=== PATIENT | female | born 1995 | race Caucasian/White ===

== ENCOUNTER 2016-10-17 22:44 | Emergency (ER) | payer BC ==
[~2016-10-17] VITALS: Ht 167.6 cm; Wt 61.4 kg
[2016-10-17 22:48] VITALS: TEMP 36.9; Ht 167.6 cm; Wt 61.4 kg
[2016-10-17] MEDS ORDERED: BCPILLS PO (23:00)
[2016-10-17] MEDS ORDERED: PANT40TA PO (23:00)
[2016-10-17] MEDS ORDERED: ONDANSETRON INJ 2 MG/ML 2 ML VIAL IV STA (23:12)
[2016-10-17] MEDS ORDERED: SODIUM CHLORIDE 0.9% 1000ML 1,000 ML IV ONE ×2 (23:15)
[2016-10-17 23:39] LABS: BASO % 0.1 %; BASO ABS # 0.03 K/uL (0-0.2); COMPLETE YES; EOS % 0.2 %; HEMATOCRIT 42.6 % (37-47); IG% 0.3 %; LYMPH % 4.7 %; LYMPH ABS # 0.97 K/uL (1.2-3.4); MEAN CELL VOLUME 90.8 fL (80-100); MEAN CORPUSCULAR HEMOGLOBIN 32.2 pg (25-34); MEAN CORPUSCULAR HGB CONC 35.4 g/dl (32-36); MEAN PLATELET VOLUME 10.1 fL (7.4-10.4); MONO % 5.2 %; NEUT % 89.5 %; PLATELET COUNT 291 K/uL (130-400); RED BLOOD COUNT 4.69 M/uL (4.2-5.4); WHITE BLOOD COUNT 20.57 K/uL (4.8-10.8)
[2016-10-17 23:58] LABS: BUN/CREATININE RATIO 18.2 (10-20); CALCIUM 9.2 mg/dl (8.5-10.1); CREATININE 0.68 mg/dl (0.60-1.20); POTASSIUM 3.6 mmol/L (3.5-5.1)
[2016-10-18] LABS: ALB/GLOB RATIO 0.9 (0.9-2)
[2016-10-18 01:08] LABS: URINE APPEARANCE CLOUDY (CLEAR); URINE BILIRUBIN NEG (NEG); URINE COLOR YELLOW; URINE EPITHELIAL CELL AUTO >30 /lpf (0-5); URINE NITRITE NEG (NEG); URINE SPECIFIC GRAVITY 1.019 (1.000-1.030); UROBILINOGEN NEG (NEG); ZZUR CULT IF INDIC CLEAN CATCH YES
[2016-10-18 01:11] LABS: MANUAL MICROSCOPIC REQUIRED? NO; REVIEW REQ? YES
[2016-10-18] MEDS ORDERED: ONDA4TAB10 SL (01:12)
[2016-10-18] MEDS ORDERED: ONDANSETRON HOME PACK 4MG OD TAB PO ONE (01:15)
[2016-10-18 01:24] LABS: URINE MUCUS PRESENT (NONE PRSENT)
[2016-10-18 01:25] VITALS: BP 147/77; PULSE 86; O2SAT 98
--- NOTE | 2016-10-18 06:11 | EMERGENCY ROOM VISIT NOTE ---
History First contact with patient: 22:55 Chief Complaint: DEHYDRATION Stated Complaint: VOMITING, DIARRHEA, DEHYDRATED Nursing Triage Summary: Patient reports n/v/d since 1999 today. Also reports diffuse abdominal cramping. History of Present Illness The patient is a 20 year old female who presents to the Emergency Room with complaints of nausea, vomiting, and diarrhea for the past 3 hours. The patient states that her symptoms began spontaneously, and she feels very dehydrated. The patient does have some abdominal cramping, but nontoxic abdominal pain. She has not had fever or chills. She does not have known exposure to disease. She did eat at [employer] for lunch today, and states that her emesis has rarely been food and water here and she had 2 episodes of diarrhea, both of which were watery. No recent antibiotic use. She rates her discomfort a 7/10. Review of Systems More than 10 systems were reviewed and otherwise negative with the exception of history of present illness. 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 Vital signs mild tachycardia GENERAL: Well-developed, well-nourished, white female, who is in no acute distress and resting comfortably. Patient is cooperative with the examination. HEAD: Normocephalic atraumatic. MOUTH: Mucous membranes moist. Tonsils are not enlarged. Pharynx without erythema, blood, or exudate. Uvula midline. Airway patent. NECK: Supple without nuchal rigidity. No lymphadenopathy. No thyromegaly. Cervical spine is nontender. HEART: Regular rate and rhythm without murmurs gallops or rubs. LUNGS: Clear to auscultation bilaterally without wheezes, rales or rhonchi. No retractions or accessory muscle use. ABDOMEN: Positive normal bowel sounds x 4. Soft, nontender, without masses or organomegaly. No guarding or rebound tenderness. Medical Decision & Procedures Laboratory Results 10/17/16 23:20 Red Blood Count 4.69, Mean Corpuscular Volume 90.8, Mean Corpuscular Hemoglobin 32.2, Mean Corpuscular Hemoglobin Concent 35.4, Mean Platelet Volume 10.1, Neutrophils (%) (Auto) 89.5, Lymphocytes (%) (Auto) 4.7, Monocytes (%) (Auto) 5.2, Eosinophils (%) (Auto) 0.2, Basophils (%) (Auto) 0.1, Neutrophils # (Auto) 18.38, Lymphocytes # (Auto) 0.97, Monocytes # (Auto) 1.07, Eosinophils # (Auto) 0.05, Basophils # (Auto) 0.03 10/17/16 23:20 Test 10/17/16 23:20 10/18/16 00:45 White Blood Count 20.57 K/uL (4.8-10.8) Red Blood Count 4.69 M/uL (4.2-5.4) Hemoglobin 15.1 g/dL (12.0-16.0) Hematocrit 42.6 % (37-47) Mean Corpuscular Volume 90.8 fL (80-100) Mean Corpuscular Hemoglobin 32.2 pg (25-34) Mean Corpuscular Hemoglobin Concent 35.4 g/dl (32-36) Platelet Count 291 K/uL (130-400) Mean Platelet Volume 10.1 fL (7.4-10.4) Neutrophils (%) (Auto) 89.5 % Lymphocytes (%) (Auto) 4.7 % Monocytes (%) (Auto) 5.2 % Eosinophils (%) (Auto) 0.2 % Basophils (%) (Auto) 0.1 % Neutrophils # (Auto) 18.38 K/uL (1.4-6.5) Lymphocytes # (Auto) 0.97 K/uL (1.2-3.4) Monocytes # (Auto) 1.07 K/uL (0.11-0.59) Eosinophils # (Auto) 0.05 K/uL (0-0.5) Basophils # (Auto) 0.03 K/uL (0-0.2) RDW Standard Deviation 40.2 fL (36.4-46.3) RDW Coefficient of Variation 12.2 % (11.5-14.5) Immature Granulocyte % (Auto) 0.3 % Immature Granulocyte # (Auto) 0.07 K/uL (0.00-0.02) Anion Gap 12.0 mmol/L (3-11) Est Creatinine Clear Calc Drug Dose 123.5 ml/min Estimated GFR () 145.9 Estimated GFR (Non- 125.9 BUN/Creatinine Ratio 18.2 (10-20) Calcium Level 9.2 mg/dl (8.5-10.1) Total Bilirubin 0.4 mg/dl (0.2-1) Aspartate Amino Transf (AST/SGOT) 15 U/L (15-37) Alanine Aminotransferase (ALT/SGPT) 27 U/L (12-78) Alkaline Phosphatase 62 U/L (45-117) Total Protein 8.1 gm/dl (6.4-8.2) Albumin 3.9 gm/dl (3.4-5.0) Globulin 4.2 gm/dl (2.5-4.0) Albumin/Globulin Ratio 0.9 (0.9-2) Lipase 112 U/L (73-393) Urine Color YELLOW Urine Appearance CLOUDY (CLEAR) Urine pH 5.0 (4.5-7.5) Urine Specific [place] 1.019 (1.000-1.030) Urine Protein NEG (NEG) Urine Glucose (UA) NEG (NEG) Urine Ketones 1+ (NEG) Urine Occult Blood NEG (NEG) Urine Nitrite NEG (NEG) Urine Bilirubin NEG (NEG) Urine Urobilinogen NEG (NEG) Urine Leukocyte Esterase NEG (NEG) Urine WBC (Auto) 10-30 /hpf (0-5) Urine RBC (Auto) 0-4 /hpf (0-4) Urine Hyaline Casts (Auto) 0 /lpf (0-5) Urine Epithelial Cells (Auto) >30 /lpf (0-5) Urine Bacteria (Auto) 2+ (NEG) Urine Renal Epithelial Cells /lpf (0-5) Urine Mucus PRESENT (NONE PRSENT) Urine Test NEG (NEG) Medications Administered Medications (Trade) Dose Ordered Sig/Ruth Ann Route Start Time Stop Time Status Last Admin Dose Admin Ondansetron HCl 4 mg 4 mg NOW STAT IV 10/17/16 23:12 10/17/16 23:14 DC 10/17/16 23:49 4 MG Sodium Chloride 1,000 ml @ 999 mls/hr Q1H1M ONCE IV 10/17/16 23:15 10/18/16 00:15 DC 10/17/16 23:25 999 MLS/HR Sodium Chloride (Nss 1000ml) 1,000 ml @ 999 mls/hr Q1H1M ONCE IV 10/17/16 23:15 10/18/16 00:15 DC 10/17/16 23:50 999 MLS/HR Ondansetron HCl (ZOFRAN ODT 4MG Home Pack) 1 homepack UD ONCE PO 10/18/16 01:15 10/18/16 01:16 DC 10/18/16 01:21 1 HOMEPACK ED Course Physical exam and history were performed. Nursing notes and EMR were reviewed. Patient appears to have nausea, vomiting, and diarrhea for the past several hours. The patient does not appear toxic on examination. IV access was established and labs were obtained. She was hydrated with 2 L normal saline and given 4 mg IV Zofran for comfort. The patient believes as above and was reviewed. She does have an elevated white blood cell count which is felt to be from her emesis. She does not have a significant anemia or gross electrolyte imbalance. She does not seem to have acute kidney injury. Her urine is 1+ ketones but no obvious infection with culture pending. On reevaluation the patient had significant improvement of her symptoms. She did have resolution of her nausea, but did have some persistent cramping. Repeat abdominal exam shows the abdomen is soft and without distinct point tenderness. She does not present like an acute surgical abdomen at this time. I suspect that her symptoms are likely related to a viral or foodborne illness. I discussed options of care with the patient, and she did feel comfortable with being discharged home. I will provide her a course of Zofran and asked her to follow with [facility] with any ongoing or persistent symptoms. I did educate the patient on monitoring for worsening or evolving symptoms. She was invited back to the ER anytime with any new, worsening, or concerning symptoms. The chart was completed utilizing [employer] Speech Voice Recognition Software. Grammatical errors, random word insertions, pronoun errors, and incomplete sentences are an occasional consequence of this system due to software limitations, ambient noise, and hardware issues. Any formal questions or concerns about the content, text, or information contained within the body of this dictation should be directly addressed to the provider for clarification. . Medical Decision Differential diagnosis: Etiologies such as gastroenteritis, food borne illness, infections, appendicitis , diverticulitis, inflammatory bowel disease, obstruction, GI bleed, biliary pathology, as well as others were entertained. Impression Primary Impression: Nausea vomiting and diarrhea Additional Impression: Dehydration Departure Information Dispostion Home / Self-Care Condition GOOD Prescriptions Ondasetron Odt (ZOFRAN ODT) 4 Mg Tab 4 MG SL Q6H for Nausea, #12 TAB Prov: Seth Morales PA-C 10/18/16 Forms HOME CARE DOCUMENTATION FORM, School Instructions, Additional Instructions: Patient seen and evaluated today in the emergency department for medica care. May return to class 10/20/2016. Please excuse. IMPORTANT VISIT INFORMATION Patient Instructions My [facility] Additional Instructions You were seen and evaluated today on an emergency basis only. This is not a substitute for, or an effort to provide, complete comprehensive medical care. It is not possible to recognize and treat all injuries or illnesses in a single emergency department visit. For this reason it is recommended that you followup with [facility] in the next 1-2 days for recheck of your condition. Drink plenty of fluids and remain well hydrated. Zofran 1 tablet every 6 hrs as needed for nausea. You are welcome to return to the emergency department anytime with new, worsening, or concerning symptoms. School Instructions Additional School Instructions: Patient seen and evaluated today in the emergency department for medical care. May return to class 10/20/2016. Please excuse. Problem Qualifiers
== END 2016-10-18 01:37 | disposition home or self-care (01) ==
LOC: C.EDB 22:47
DX: E86.0 Dehydration (principal); R11.2 Nausea with vomiting, unspecified; R19.7 Diarrhea, unspecified; Z79.3 Long term (current) use of hormonal contraceptives